=== PATIENT | male | born 1995 | race Caucasian/White ===

== ENCOUNTER → 2016-06-15 13:31 | Outpatient (CLI) | payer MEDICAID ==
[2015-12-12 12:40] VITALS: BMI 25.1
[~2016-06-15 13:31] MED LIST: DILAUDID4 MG PO; HYDROCODONE-APA1 TAB PO
== END | disposition home or self-care (01) ==
LOC: D.MRI 06-13 10:00
DX: M75.42 Impingement syndrome of left shoulder (principal)

== ENCOUNTER 2016-11-15 18:29 | Emergency (ER) | payer MEDICAID ==
[2015-12-12 12:40] VITALS: BMI 25.1
== END 2016-11-15 20:40 | disposition home or self-care (01) ==
LOC: D.ER 18:29
DX: S49.91XA Unspecified injury of right shoulder and upper arm, initial encounter (principal); X50.0XXA Overexertion from strenuous movement or load, initial encounter; Y93.89 Activity, other specified; Y92.019 Unspecified place in single-family (private) house as the place of occurrence of the external cause; M25.511 Pain in right shoulder; F17.200 Nicotine dependence, unspecified, uncomplicated

== ENCOUNTER 2016-12-25 18:39 | Emergency (ER) | payer MEDICAID ==
[2015-12-12 12:40] VITALS: BMI 25.1
== END 2016-12-25 22:51 | disposition home or self-care (01) ==
LOC: D.ER 18:39
DX: S29.012A Strain of muscle and tendon of back wall of thorax, initial encounter (principal); X58.XXXA Exposure to other specified factors, initial encounter; Y93.89 Activity, other specified; Y92.029 Unspecified place in mobile home as the place of occurrence of the external cause; M62.830 Muscle spasm of back